=== PATIENT | female | born 2000 | race Two or more races ===

== ENCOUNTER 2024-05-20 09:55 | Emergency (ER) | payer MEDICAID, OTHER ==
[~2024-05-20] VITALS: Ht 162.6 cm; Wt 56.5 kg
--- NOTE | 2024-05-20 10:21 | ED.PDOC ---
History of Present Illness HPI Comments 23-year-old female came to the ER complaining of nausea vomiting cough congestion since yesterday. She is also complaining of abdominal pain which is 7/10 no radiation. She does use marijuana. Last being yesterday. Blood pressure on arrival 121/90 with a heart rate of 98 with a saturation of 95%. Denies any past surgical history. Denies any other symptoms. 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 Social History Smoker: Non-Smoker Alcohol: Denies ETOH Use Drugs: Marijuana Constitutional: denies: chills, diaphoresis, fatigue, fever, malaise, sweats, weakness, others EENTM: denies: blurred vision, double vision, ear bleeding, ear discharge, ear drainage, ear pain, ear ringing, eye pain, eye redness, hearing loss, mouth pain, mouth swelling, nasal discharge, nose bleeding, nose congestion, nose pain, photophobia, tearing, throat pain, throat swelling, voice changes, others Respiratory: denies: cough, hemoptysis, orthopnea, SOB at rest, shortness of breath, SOB with excertion, stridor, wheezing, others Cardiovascular: denies: chest pain, dizzy spells, diaphoresis, Dyspnea on exertion, edema, irregular heart beat, left arm pain, lightheadedness, palpitations, PND, syncope, others Gastrointestinal: reports: abdominal pain, nausea, vomiting; denies: abdomen distended, blood streaked bowels, constipated, diarrhea, dysphagia, difficulty swallowing, hematemesis, melena, poor appetite, poor fluid intake, rectal bleeding, rectal pain, others Genitourinary: denies: abnormal vagina bleeding, burning, dyspareunia, dysuria, flank pain, frequency, hematuria, incontinence, pain, , vagina discharge, urgency, others Neurological: denies: dizziness, fainting, headache, left sided numbness, left sided weakness, numbness, paresthesia, pre-existing deficit, right sided numbness, right sided weakness, seizure, speech problems, tingling, tremors, weakness, others Musculoskeletal: denies: back pain, gout, joint pain, joint swelling, muscle pain, muscle stiffness, neck pain, others Integumetry: denies: bruises, change in color, change in hair/nails, dryness, laceration, lesions, lumps, rash, wounds, others Allergic/Immunocompromised: denies: Difficulty Healing, Frequent Infections, Hives, Itching, others Hematologic/Lymphatic: denies: anemia, blood clots, easy bleeding, easy bruising, swollen glands, others Endocrine: denies: excessive hunger, excessive sweating, excessive thirst, excessive urination, flushing, intolerance to cold, intolerance to heat, unexpla ined weight gain, unexplained weight loss, others Psychiatric: denies: anxiety, bipolar disorder, depression, hopeless, panic disorder, schizophrenia, sleepless, suicidal, others Physical Exam General Appearance: Moderate Distress HEENT: Normal ENT Inspection, Pharynx Normal, TMs Normal Neck: Full Range of Motion, Non-Tender, Normal, Normal Inspection Respiratory: Chest Non-Tender, Lungs Clear, No Accessory Muscle Use, No Respiratory Distress, Normal Breath Sounds Cardiovascular: No Edema, No JVD, No Murmur, No Gallop, Normal Peripheral Pulses, Regular Rate/Rhythm Breast Exam: Deferred Gastrointestinal: No Organomegaly, Non Tender, No Pulsatile Mass, Normal Bowel Sounds, Soft Genitalia: Deferred Pelvic: Deferred Rectal: Deferred Extremities: No calf tenderness, Normal capillary refill, Normal inspection, Normal range of motion, Non-tender, No pedal edema Musculoskeletal : Apperance: Normal Neurologic: Alert, parer II-XII nml as Tested, No Motor Deficits, Normal Affect, Normal Mood, No Sensory Deficits Cerebellar Function: Normal Reflexes: Normal Skin: Dry, Normal Color, Warm Peripheral Pulses: 3+ Radial (R), 3+ Radial (L) Lymphatic: No Adenopathy Was a procedure done? Was a procedure done?: No Differential Dx Considerations may include: Anemia Electrolyte imbalance X-Ray, Labs, Meds, VS Vital Signs Date Time Temp Pulse Resp B/P (MAP) Pulse Ox O2 Delivery O2 Flow Rate FiO2 05/20/24 11:27 98.0 90 16 142/94 (110) 94 98.0 05/20/24 11:26 90 16 142/94 05/20/24 10:48 93 18 95 Room Air 05/20/24 10:48 97.5 93 18 139/97 (111) 95 97.5 05/20/24 10:45 92 16 139/97 05/20/24 10:11 98.6 98 20 121/90 (100) 95 Lab Test 05/20/24 10:33 05/20/24 10:10 Range/Units White Blood Count 14.4 H 4.4-10.8 10^3/uL Red Blood Count 4.18 4.0-5.20 10^6/uL Hemoglobin 13.9 12.2-16.2 g/dL Hematocrit 39.0 36.0-46.0 % Mean Corpuscular Volume 93.2 80.0-100.0 fL Mean Corpuscular Hemoglobin 33.3 H 28.0-32.0 pg Mean Corpuscular Hemoglobin Concent 35.7 32.0-36.0 g/dL Red Cell Distribution Width 15.1 H 11.8-14.3 % Platelet Count 621 H 140-450 10^3/uL Mean Platelet Volume 6.7 L 6.9-10.8 fL Neutrophils (%) (Auto) 80.2 H 37.0-80.0 % Lymphocytes (%) (Auto) 11.0 10.0-50.0 % Monocytes (%) (Auto) 8.1 0.0-12.0 % Eosinophils (%) (Auto) 0.2 0.0-7.0 % Basophils (%) (Auto) 0.5 0.0-2.0 % Neutrophils # (Auto) 11.5 H 1.6-8.6 10 ^3/uL Lymphocytes # (Auto) 1.6 0.4-5.4 10 ^3/uL Monocytes # (Auto) 1.2 0-1.3 10 ^3/uL Eosinophils # (Auto) 0 0-0.8 10 ^3/uL Basophils # (Auto) 0.1 0-0.2 10 ^3/uL Nucleated Red Blood Cells 0.0 % Sodium Level 139 136-145 mmol/L Potassium Level 3.7 3.5-5.1 mmol/L Chloride Level 101 98-107 mmol/L Carbon Dioxide Level 24 20-31 mmol/L Anion Gap 14 5-15 Blood Urea Nitrogen 14 9-23 mg/dL Creatinine 0.60 0.550-1.02 mg/dL Glomerular Filtration Rate Calc 128 >90 mL/min BUN/Creatinine Ratio 23.3 H 10.0-20.0 Serum Glucose 129 H 74-106 mg/dL Calcium Level 9.7 8.7-10.4 mg/dL Urine Color Dark-brown Yellow Urine Clarity Ex.turbid Clear Urine pH 6.0 5.0-9.0 Urine Specific [place] 1.033 1.001-1.035 Urine Protein 3+ H Negative Urine Ketones 2+ H Negative Urine Blood 3+ H Negative /uL Urine Nitrite Negative Negative Urine Bilirubin Negative Negative Urine Urobilinogen 3 H Negative mg/dL Urine Leukocyte Esterase 1+ Negative /uL Urine RBC 4666 0 - 4 /hpf Urine WBC Clumps Present None Seen /hpf Urine Microscopic WBC 142 H 0-5 /HPF Urine Squamous Epithelial Cells Mod <5 /hpf Urine Bacteria None seen None Seen /hpf Urine Mucus Many None Seen Urine Glucose Normal Normal mg/dL Urine Opiates Screen Neg NEGATIVE Urine Fentanyl Screen Neg NEGATIVE Urine Barbiturates Screen Neg NEGATIVE Urine Phencyclidine Screen Neg NEGATIVE Urine Amphetamines Screen Neg NEGATIVE Urine Benzodiazepines Screen Neg NEGATIVE Urine Cocaine Screen Neg NEGATIVE Urine Cannabinoids Screen Pos NEGATIVE Current Medications Medications (Trade) Dose Ordered Sig/Olivia Route Start Time Stop Time Status Last Admin Sodium Chloride 1,000 ml @ 1,000 mls/hr Q1H ONCE IV 05/20/24 10:30 05/20/24 11:29 DC 05/20/24 10:42 Morphine Sulfate 4 mg ONCE ONCE IV 05/20/24 10:30 05/20/24 10:31 DC 05/20/24 10:45 Ondansetron HCl (Zofran) 4 mg ONCE ONCE IV 05/20/24 10:30 05/20/24 10:31 DC 05/20/24 10:44 Patient alert. Complaining of nausea vomiting. Vitals stable. Answering all questions. Uses marijuana. Establish intravenous access. Was given fluids. Was given Zofran. Was given morphine. Explained to the patient. Continue monitoring. WBC elevated. Urinalysis shows UTI. Blood in the urine. Ketones. Severe dehydration. Possible sepsis. Was given Rocephin. Time of 1ST Reevaluation: 10:19 Reevaluation 1ST: Unchanged Patient Education/Counseling: Diagnosis, Treatment, Prognosis Family Education/Counseling: No Family Present Departure 1 Departure Time of Disposition: 10:20 Impression: Primary Impression: Sepsis, unspecified organism Qualified Codes: A41.9 - Sepsis, unspecified organism Additional Impression: Nausea & vomiting Qualified Codes: R11.2 - Nausea with vomiting, unspecified Disposition: ADMITTED INPATIENT Admit to: Med Surg Condition: Guarded Critical Care Note Critical Care Time?: No Stability Stability form required: No Heart Score Heart Score: Heart Score Response (Comments) Value History N/A 0 EKG N/A 0 Age N/A 0 Risk Factors N/A 0 Troponin N/A 0 Total 0 CAROLANN MONTANEZ MD May 20, 2024 10:21
[2024-05-20] MEDS: SODIUM CHLORIDE 0.9% 1,000 ML IV ONE (10:42)
[2024-05-20] MEDS: ONDANSETRON HCL 4 MG/2 ML VIAL IV ONE (10:44)
[2024-05-20] MEDS: MORPHINE SULFATE 4 MG/ML SYR/VIAL IV ONE (10:45)
[2024-05-20 10:46] LABS: Basophils # (auto) 0.1 10 ^3/uL (0-0.2); Eosinophils # (auto) 0 10 ^3/uL (0-0.8); Lymphocytes # (auto) 1.6 10 ^3/uL (0.4-5.4); Monocytes # (auto) 1.2 10 ^3/uL (0-1.3); Red Cell Distribution Width 15.1 % (11.8-14.3)
[2024-05-20 10:48] LABS: Basophils % (auto) 0.5 % (0.0-2.0); Eosinophils % (auto) 0.2 % (0.0-7.0); Hemoglobin 13.9 g/dL (12.2-16.2); Mean Corpuscular Hemoglobin 33.3 pg (28.0-32.0); Mean Corpuscular Hgb Conc. 35.7 g/dL (32.0-36.0); Mean Corpuscular Volume 93.2 fL (80.0-100.0); Monocytes % (auto) 8.1 % (0.0-12.0); Neutrophils # (auto) 11.5 10 ^3/uL (1.6-8.6); Neutrophils % (auto) 80.2 % (37.0-80.0); Platelet Count (auto) 621 10^3/uL (140-450); Red Blood Cells 4.18 10^6/uL (4.0-5.20); White Blood Cell 14.4 10^3/uL (4.4-10.8)
[2024-05-20 10:59] LABS: Urine Bacteria None Seen /hpf (None Seen)
[2024-05-20 11:14] LABS: Urine Blood 3+ /uL (Negative); Urine Clarity Ex.Turbid (Clear); Urine Color Dark-Brown (Yellow); Urine Mucus MANY (None Seen); Urine Protein, UAD 3+ (Negative); Urine Specific Gravity 1.033 (1.001-1.035); Urine Squamous Epithelial Cell MOD /hpf (<5); Urine Urobilinogen 3 mg/dL (Negative); Urine WBC 142 /HPF (0-5); Urine WBC Clumps PRESENT /hpf (None Seen)
[2024-05-20 11:21] LABS: Anion Gap 14 (5-15); Carbon Dioxide 24 mmol/L (20-31); Chloride 101 mmol/L (98-107); Potassium 3.7 mmol/L (3.5-5.1); Sodium 139 mmol/L (136-145)
[2024-05-20 11:22] LABS: Calcium 9.7 mg/dL (8.7-10.4)
[2024-05-20 11:27] VITALS: BP 142/94; PULSE 90; RESP 16; TEMP 98; O2SAT 94
[2024-05-20 11:27] LABS: BUN/Creatinine Ratio 23.3 (10.0-20.0); Blood Urea Nitrogen 14 mg/dL (9-23)
[2024-05-20 11:31] LABS: Glucose 129 mg/dL (74-106)
[2024-05-20 11:37] LABS: Amphetamine Screen, Urine Neg (NEGATIVE); Cannabinoid Screen, Urine Pos (NEGATIVE)
[2024-05-20 11:39] LABS: Barbiturate Scree,Urine Neg (NEGATIVE); Benzodiazephine Screen, Urine Neg (NEGATIVE); Cocaine Screen, Urine Neg (NEGATIVE); Opiate Scree,Urine Neg (NEGATIVE); Phencyclidine Screen, Urine Neg (NEGATIVE)
[2024-05-20] MEDS ORDERED: cefTRIAXone 1GM/50ML D5W 50 ML IV ONE (12:30)
[2024-05-20] MEDS ORDERED: SODIUM CHLORIDE 0.9% 1,000 ML IV ONE ×2 (12:30)
== END 2024-05-20 16:32 | disposition left against medical advice (07) ==
LOC: ER 09:55
DX: A41.9 Sepsis, unspecified organism (principal); R11.2 Nausea with vomiting, unspecified; F15.90 Other stimulant use, unspecified, uncomplicated; Z79.899 Other long term (current) drug therapy
CPT/HCPCS: 36415; 80048; 80307; 81001; 83605; 85025; 87040; 87086; 96361; 96374; 96375; 99284; J2270; J2405; J7030

== ENCOUNTER 2025-03-03 00:44 | Inpatient (IN) | payer MEDICAID ==
[~2025-03-03] VITALS: Ht 162.6 cm; Wt 73.4 kg
--- NOTE | 2025-03-03 01:24 | ED.PDOC ---
GI ASSESSMENT HPI Comments 24-year-old female who came to ER for abdominal pain. Patient has been complaining of sharp, intermittent left lower quadrant abdominal pain since yesterday, associated with multiple bouts of nausea and vomiting. Unable to keep anything in. Patient also states that she has been having vaginal bleeding since January. 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 Family History Family History: Reviewed,noncontributory to illness Social History Smoker: Non-Smoker Alcohol: Denies ETOH Use Drugs: Marijuana Lives In: Home Constitutional: reports: weakness; denies: chills, diaphoresis, fatigue, fever, malaise, sweats, others EENTM: denies: blurred vision, double vision, ear bleeding, ear discharge, ear drainage, ear pain, ear ringing, eye pain, eye redness, hearing loss, mouth pain, mouth swelling, nasal discharge, nose bleeding, nose congestion, nose pain, photophobia, tearing, throat pain, throat swelling, voice changes, others Respiratory: denies: cough, hemoptysis, orthopnea, SOB at rest, shortness of breath, SOB with excertion, stridor, wheezing, others Cardiovascular: denies: chest pain, dizzy spells, diaphoresis, Dyspnea on e xertion, edema, irregular heart beat, left arm pain, lightheadedness, palpitations, PND, syncope, others Gastrointestinal: reports: abdominal pain, nausea, vomiting; denies: abdomen distended, blood streaked bowels, constipated, diarrhea, dysphagia, difficulty swallowing, hematemesis, melena, poor appetite, poor fluid intake, rectal bleeding, rectal pain, others Genitourinary: denies: abnormal vagina bleeding, burning, dyspareunia, dysuria, flank pain, frequency, hematuria, incontinence, pain, , vagina discharge, urgency, others Neurological: denies: dizziness, fainting, headache, left sided numbness, left sided weakness, numbness, paresthesia, pre-existing deficit, right sided numbness, right sided weakness, seizure, speech problems, tingling, tremors, weakness, others Musculoskeletal: denies: back pain, gout, joint pain, joint swelling, muscle pain, muscle stiffness, neck pain, others Integumetry: denies: bruises, change in color, change in hair/nails, dryness, laceration, lesions, lumps, rash, wounds, others Allergic/Immunocompromised: denies: Difficulty Healing, Frequent Infections, Hives, Itching, others Hematologic/Lymphatic: denies: anemia, blood clots, easy bleeding, easy bruising, swollen glands, others Endocrine: denies: excessive hunger, excessive sweating, excessive thirst, excessive urination, flushing, intolerance to cold, intolerance to heat, unexplained weight gain, unexplained weight loss, others Psychiatric: denies: anxiety, bipolar disorder, depression, hopeless, panic disorder, schizophrenia, sleepless, suicidal, others Physical Exam General Appearance: No Apparent Distress, Normal HEENT: Normal ENT Inspection, Pharynx Normal, TMs Normal Neck: Full Range of Motion, Non-Tender, Normal, Normal Inspection Respiratory: Chest Non-Tender, Lungs Clear, No Accessory Muscle Use, No Respiratory Distress, Normal Breath Sounds Cardiovascular: No Edema, No JVD, No Murmur, No Gallop, Normal Peripheral Pulses, Regular Rate/Rhythm Breast Exam: Deferred Gastrointestinal: Epigastric, No Organomegaly, No Pulsatile Mass, Normal Bowel Sounds, Soft, Tenderness Genitalia: Deferred Pelvic: Deferred Rectal: Deferred Extremities: No calf tenderness, Normal capillary refill, Normal inspection, Normal range of motion, Non-tender, No pedal edema Musculoskeletal : Apperance: Normal Neurologic: Alert, identifier horse II-XII nml as Tested, No Motor Deficits, Normal Affect, Normal Mood, No Sensory Deficits Cerebellar Function: Normal Reflexes: Normal Skin: Dry, Normal Color, Warm Lymphatic: No Adenopathy Was a procedure done? Was a procedure done?: No GI differential Dx Differential Diagnosis: Gastritis/PUD, Gastroenteritis, Pancreatitis, UTI, Dehydration, Electrolyte Imbalance, Food Poisoning, , Anemia X-Ray, Labs, Meds, VS Vital Signs Date Time Temp Pulse Resp B/P (MAP) Pulse Ox O2 Delivery O2 Flow Rate FiO2 03/03/25 01:52 98.3 73 16 149/116 (127) 98 98.3 03/03/25 00:45 97.7 89 18 163/103 98 97.7 Lab Test 03/03/25 03:10 03/03/25 01:55 03/03/25 01:42 03/03/25 01:16 Range/Units Lactic Acid Level Pending Urine Color [place] H Yellow Urine Clarity Ex.turbid Clear Urine pH 6.5 5.0-9.0 Urine Specific [place] 1.044 H 1.001-1.035 Urine Protein 3+ H Negative Urine Ketones 2+ H Negative Urine Blood 2+ H Negative /uL Urine Nitrite Negative Negative Urine Bilirubin 1+ H Negative Urine Urobilinogen 4 H Negative mg/dL Urine Leukocyte Esterase 3+ Negative /uL Urine RBC 13 0 - 4 /hpf Urine Microscopic WBC 221 H 0-5 /HPF Urine Squamous Epithelial Cells Many <5 /hpf Urine Bacteria None seen None Seen /hpf Urine Mucus Many None Seen Urine Glucose Normal Normal mg/dL Urine Test Negative Negative POC Glucose 159 H 70-106 mg/dl White Blood Count 15.9 H 4.4-10.8 10^3/uL Red Blood Count 4.90 4.0-5.20 10^6/uL Hemoglobin 15.9 12.2-16.2 g/dL Hematocrit 46.5 H 36.0-46.0 % Mean Corpuscular Volume 94.9 80.0-100.0 fL Mean Corpuscular Hemoglobin 32.6 H 28.0-32.0 pg Mean Corpuscular Hemoglobin Concent 34.3 32.0-36.0 g/dL Red Cell Distribution Width 13.3 11.8-14.3 % Platelet Count 378 140-450 10^3/uL Mean Platelet Volume 6.6 L 6.9-10.8 fL Neutrophils (%) (Auto) 71.4 37.0-80.0 % Lymphocytes (%) (Auto) 18.5 10.0-50.0 % Monocytes (%) (Auto) 9.0 0.0-12.0 % Eosinophils (%) (Auto) 0.5 0.0-7.0 % Basophils (%) (Auto) 0.6 0.0-2.0 % Neutrophils # (Auto) 11.4 H 1.6-8.6 10 ^3/uL Lymphocytes # (Auto) 2.9 0.4-5.4 10 ^3/uL Monocytes # (Auto) 1.4 H 0-1.3 10 ^3/uL Eosinophils # (Auto) 0.1 0-0.8 10 ^3/uL Basophils # (Auto) 0.1 0-0.2 10 ^3/uL Nucleated Red Blood Cells 0.0 % Sodium Level 141 136-145 mmol/L Potassium Level 3.8 3.5-5.1 mmol/L Chloride Level 104 98-107 mmol/L Carbon Dioxide Level 23 20-31 mmol/L Anion Gap 14 5-15 Blood Urea Nitrogen 16 9-23 mg/dL Creatinine 0.74 0.550-1.02 mg/dL Glomerular Filtration Rate Calc 114 >90 mL/min BUN/Creatinine Ratio 21.6 H 10.0-20.0 Serum Glucose 132 H 74-106 mg/dL Calcium Level 10.8 H 8.7-10.4 mg/dL Total Bilirubin 0.6 0.2-1.0 mg/dL Aspartate Amino Transferase (AST) 26 13-40 U/L Alanine Aminotransferase (ALT) 32 7-40 U/L Alkaline Phosphatase 102 46-116 U/L Total Protein 8.7 H 5.7-8.2 g/dL Albumin 5.3 H 3.2-4.8 g/dL Lipase 30 12-53 U/L Current Medications Medications (Trade) Dose Ordered Sig/Olivia Route Start Time Stop Time Status Last Admin Sodium Chloride 1,000 ml @ 1,000 mls/hr Q1H ONCE IVB 03/03/25 01:00 03/03/25 01:59 DC 03/03/25 01:47 Ondansetron HCl (Zofran) 4 mg ONCE ONCE IV 03/03/25 02:15 03/03/25 02:16 DC 03/03/25 02:19 Ceftriaxone Sodium/Dextrose 50 ml @ 50 mls/hr ONCE ONCE IV 03/03/25 03:15 03/03/25 04:14 03/03/25 03:22 EXAM: CT CT AB PEL WITH IV CON ONLY History: ABDOMINAL PAIN COMPARISON: None TECHNIQUE: CT acquisition of the abdomen and pelvis with contrast. Multiplanar reformats were performed by the technologist on a separate workstation. Radiation Dose : 1. Abdomen/Pelvis: CTDIvol 9 mGy, DLP 565 mGy*cm. FINDINGS: Lower Chest: No acute findings. Liver: Diffuse hypoenhancement. Gallbladder and Biliary Tree: Unremarkable Pancreas: Normal. Spleen: Normal. Adrenal Glands: Unremarkable Kidneys: Normal. Bladder: Unremarkable for degree of distention. Pelvic Organs: Unremarkable Bowel: The distal esophagus, stomach, duodenum and small bowel are unremarkable. The appendix is normal. Circumferential wall prominence of the large bowel from the cecum to the distal transverse colon, which is decompressed. The more distal large bowel is unremarkable. Vasculature: Unremarkable. Lymphadenopathy: No evident adenopathy. Peritoneum: Physiologic volume of pelvic ascites. No free air or fluid collection. Abdominal Wall: No significant hernia. Musculoskeletal: No acute abnormality. IMPRESSION: Evidence of a nonspecific proximal mid colitis, likely infectious or infla mmatory. Radiation optimization: All CT scans at this facility use at least one of these dose optimization techniques: automated exposure control mA and/or kV adjustment per patient size (includes targeted exams where dose is matched to clinical indication) or iterative reconstruction. Time of 1ST Reevaluation: 01:21 Reevaluation 1ST: Unchanged Patient Education/Counseling: Diagnosis, Treatment Family Education/Counseling: No Family Present SEPSIS Sepsis Screen Date sepsis recognized/suspect: Mar 03, 2025 Time Sepsis recognized/suspect: 005 Recent Procedure: No On Antibiotic Therapy: No Respiratory Rate >20: No Heart Rate >90: No Temp<36 C (96.8 F) or >38.3 C: No SBP <90 or MAP <65 mmHG: No New Acute Mental Status Change: No Is the patient on CPAP, BIPAP,: No Physician Orders Ct Ab Pel With Iv Con Only (03/03/25 02:02) Lactic Acid W/ Reflex Order (03/03/25 03:06) Blood Culture (03/03/25 03:06) Ceftriaxone 2gm/50ml (Rocephin 2gm/50ml) (03/03/25 03:15) Sodium Chloride 0.9% (03/03/25 03:30) Vital Signs Date Time Temp Pulse Resp B/P (MAP) Pulse Ox O2 Delivery O2 Flow Rate FiO2 03/03/25 01:52 98.3 73 16 149/116 (127) 98 98.3 03/03/25 00:45 97.7 89 18 163/103 98 97.7 Laboratory Tests Test 03/03/25 01:16 03/03/25 03:10 White Blood Count 15.9 10^3/uL (4.4-10.8) H Lactic Acid Level Pending Medications Medications Dose Ordered Sig/Olivia Route Start Time Stop Time Status Last Admin Dose Admin Ceftriaxone Sodium/Dextrose 50 ml @ 50 mls/hr ONCE ONCE IV 03/03/25 03:15 03/03/25 04:14 03/03/25 03:22 Ondansetron HCl 4 mg ONCE ONCE IV 03/03/25 02:15 03/03/25 02:16 DC 03/03/25 02:19 Sodium Chloride 1,000 ml @ 1,000 mls/hr Q1H ONCE IVB 03/03/25 01:00 03/03/25 01:59 DC 03/03/25 01:47 Departure 1 Departure Time of Disposition: 03:31 Impression: Primary Impression: Intractable vomiting Additional Impressions: Dehydration Pyelonephritis Nonspecific colitis Disposition: ADMITTED INPATIENT Admit to: Med Surg Condition: Guarded Comments 24-year-old female with left lower quadrant pain and intractable vomiting. Her white count is elevated 15.5. She has a strong UTI. CT of the abdomen and pelvis shows nonspecific colitis. She is still nauseated and having pain on re- evaluation. She was given IV fluids and IV Rocephin antibiotics. Patient will need to be admitted for supportive care and further workup. Critical Care Note Critical Care Time?: No Stability Stability form required: No Heart Score Heart Score: Heart Score Response (Comments) Value History N/A 0 EKG N/A 0 Age N/A 0 Risk Factors N/A 0 Troponin N/A 0 Total 0 I personally scribed for FEDE NAVA MD ([email or web address]) on 03/03/25 at 01:24. Electronically submitted by Stevenson Calderon ([email or web address]). I personally scribed for FEDE NAVA MD ([email or web address]) on 03/03/25 at 03:30. Electronically submitted by Stevenson Calderon ([email or web address]). FEDE NAVA MD Mar 03, 2025 01:24
[2025-03-03 01:37] LABS: Hematocrit 46.5 % (36.0-46.0); Hemoglobin 15.9 g/dL (12.2-16.2); Mean Corpuscular Hemoglobin 32.6 pg (28.0-32.0); Mean Corpuscular Volume 94.9 fL (80.0-100.0); Nucleated Red Blood Cells % 0.0 %
[2025-03-03] MEDS: SODIUM CHLORIDE 0.9% 1,000 ML IVB ONE (01:47)
[2025-03-03 01:56] LABS: Alanine Aminotransferase 32 U/L (7-40); Alkaline Phosphatase 102 U/L (46-116); Anion Gap 14 (5-15); BUN/Creatinine Ratio 21.6 (10.0-20.0); Bilirubin, Total 0.6 mg/dL (0.2-1.0); Blood Urea Nitrogen 16 mg/dL (9-23); Carbon Dioxide 23 mmol/L (20-31); Chloride 104 mmol/L (98-107); Lipase 30 U/L (12-53); Potassium 3.8 mmol/L (3.5-5.1); Sodium 141 mmol/L (136-145)
[2025-03-03 01:57] LABS: Albumin 5.3 g/dL (3.2-4.8); Calcium 10.8 mg/dL (8.7-10.4); Glucose 132 mg/dL (74-106); Total Protein 8.7 g/dL (5.7-8.2)
[2025-03-03] MEDS: ONDANSETRON HCL 4 MG/2 ML VIAL IV ONE (02:19)
[2025-03-03 02:27] LABS: Urine Protein, UAD 3+ (Negative)
[2025-03-03] MEDS: IOHEXOL 300 MG/ML 100ML BOTTLE IJ ONE (03:02)
--- NOTE | 2025-03-03 03:25 | DVH ---
EXAM: CT CT AB PEL WITH IV CON ONLY History: ABDOMINAL PAIN COMPARISON: None TECHNIQUE: CT acquisition of the abdomen and pelvis with contrast. Multiplanar reformats were performed by the technologist on a separate workstation. Radiation Dose : 1. Abdomen/Pelvis: CTDIvol 9 mGy, DLP 565 mGy*cm. FINDINGS: Lower Chest: No acute findings. Liver: Diffuse hypoenhancement. Gallbladder and Biliary Tree: Unremarkable Pancreas: Normal. Spleen: Normal. Adrenal Glands: Unremarkable Kidneys: Normal. Bladder: Unremarkable for degree of distention. Pelvic Organs: Unremarkable Bowel: The distal esophagus, stomach, duodenum and small bowel are unremarkable. The appendix is normal. Circumferential wall prominence of the large bowel from the cecum to the distal transverse colon, which is decompressed. The more distal large bowel is unremarkable. Vasculature: Unremarkable. Lymphadenopathy: No evident adenopathy. Peritoneum: Physiologic volume of pelvic ascites. No free air or fluid collection. Abdominal Wall: No significant hernia. Musculoskeletal: No acute abnormality. IMPRESSION: Evidence of a nonspecific proximal mid colitis, likely infectious or inflammatory. Radiation optimization: All CT scans at this facility use at least one of these dose optimization techniques: automated exposure control mA and/or kV adjustment per patient size (includes targeted exams where dose is matched to clinical indication) or iterative reconstruction.
[2025-03-03] MEDS: SODIUM CHLORIDE 0.9% 1,000 ML IV ONE (03:33)
--- NOTE | 2025-03-03 03:45 | DVHHPRES ---
History of Present Illness Resident Creating Document: WILMER HAYES RESIDENT History of Present Illness This is a 24-year-old female with past medical history of hypothyroidism, recurrent UTI presented to the ED with a chief complaint of left lower abdominal pain, intractable nausea and vomiting since yesterday afternoon prior to this admission. The patient stated that since yesterday she started having left lower pelvic pain which was sharp pain, 8/10, radiates to the left flank region and associated with intractable nausea, vomiting, cold sweats and 1 episodes of diarrhea . She had history of recurrent UTI but never been hospitalized before for UTI. She denies fever, chills, shortness of breath, dysuria, frequency, hematuria, altered bowel habit, recent traveling, eating outside food or any recent sick contact. Past Medical History Hypothyroidism, recurrent UTI Past Surgical History Denies any surgical history Family History Noncontributory Past Social History Lives with family Smoke weeds, social drinker and never tried any other drugs Review of Systems Constitutional: Yes: Sweats; No: Fever, Chills, Weakness, Malaise, Other Eyes: No: Pain, Vision change, Conjunctivae inflammation, Eyelid inflammation, Other, Redness ENT: No: Ear pain, Ear discharge, Nose pain, Nose discharge, Nose congestion, Mouth pain, Mouth swelling, Throat pain, Throat swelling, Other Respiratory: No: Cough, Dry, Shortness of breath, SOB with excertion, Wheezing, Hemoptysis, Pleuritic Pain, Sputum, Wheezing, Other Cardiovascular: No: Chest Pain, Palpitations, Orthopnea, Paroxysmal Noc. Dyspnea, Edema, Lt Headedness, Other Gastrointestinal: Nausea, Vomiting, Abdominal Pain, Diarrhea Genitourinary: No Dysuria, No Frequency, No Incontinence, No Hematuria, No Retention, No Other Skin: No: Rash, Lesions, Jaundice, Bruising, Other Neurological: No: Weakness, Numbness, Incoordination, Change in speech, Confusion, Seizures, Other Allergies: Coded Allergies: NO KNOWN ALLERGIES (Unverified , 05/20/24) Exam Vital Signs Vital Signs Date Time Temp Pulse Resp B/P (MAP) Pulse Ox O2 Delivery O2 Flow Rate FiO2 03/03/25 03:38 64 16 147/105 (119) 99 03/03/25 01:52 98.3 98.3 03/03/25 01:47 Room Air* 0 21 Exam Physical examination: General Appearance: Alert, Oriented X3, Cooperative, No acute distress HEENT: Atraumatic, PERRLA, EOMI, Mucous membrane moist/pink Respiratory: Clear to auscultation, Normal air movement Cardiovascular: Regular rate, Normal S1, Normal S2, No murmurs, no chest wall tenderness Abdominal: Normal bowel sounds, Soft, mild diffuse tenderness in the abdomen, No hepatospenomegaly, No masses Extremities: No clubbing, No cyanosis, No edema, Normal pulses, No tenderness/swelling Skin: No rashes, No breakdown, No significant lesion Neuro: Normal gait, Normal speech, Strength at 5/5 X4 ext, Normal tone, Sensation intact, Cranial nerves 3-12 NL, Reflexes 2+ Psych/Mental Status: Mental status NL, Mood NL Labs/Xrays Labs Test 03/03/25 03:10 03/03/25 01:55 03/03/25 01:42 03/03/25 01:16 Range/Units Urine Color [place] H Yellow Urine Clarity Ex.turbid Clear Urine pH 6.5 5.0-9.0 Urine Specific [place] 1.044 H 1.001-1.035 Urine Protein 3+ H Negative Urine Ketones 2+ H Negative Urine Blood 2+ H Negative /uL Urine Nitrite Negative Negative Urine Bilirubin 1+ H Negative Urine Urobilinogen 4 H Negative mg/dL Urine Leukocyte Esterase 3+ Negative /uL Urine RBC 13 0 - 4 /hpf Urine Microscopic WBC 221 H 0-5 /HPF Urine Squamous Epithelial Cells Many <5 /hpf Urine Bacteria None seen None Seen /hpf Urine Mucus Many None Seen Urine Glucose Normal Normal mg/dL Urine Test Negative Negative POC Glucose 159 H 70-106 mg/dl White Blood Count 15.9 H 4.4-10.8 10^3/uL Red Blood Count 4.90 4.0-5.20 10^6/uL Hemoglobin 15.9 12.2-16.2 g/dL Hematocrit 46.5 H 36.0-46.0 % Mean Corpuscular Volume 94.9 80.0-100.0 fL Mean Corpuscular Hemoglobin 32.6 H 28.0-32.0 pg Mean Corpuscular Hemoglobin Concent 34.3 32.0-36.0 g/dL Red Cell Distribution Width 13.3 11.8-14.3 % Platelet Count 378 140-450 10^3/uL Mean Platelet Volume 6.6 L 6.9-10.8 fL Neutrophils (%) (Auto) 71.4 37.0-80.0 % Lymphocytes (%) (Auto) 18.5 10.0-50.0 % Monocytes (%) (Auto) 9.0 0.0-12.0 % Eosinophils (%) (Auto) 0.5 0.0-7.0 % Basophils (%) (Auto) 0.6 0.0-2.0 % Neutrophils # (Auto) 11.4 H 1.6-8.6 10 ^3/uL Lymphocytes # (Auto) 2.9 0.4-5.4 10 ^3/uL Monocytes # (Auto) 1.4 H 0-1.3 10 ^3/uL Eosinophils # (Auto) 0.1 0-0.8 10 ^3/uL Basophils # (Auto) 0.1 0-0.2 10 ^3/uL Nucleated Red Blood Cells 0.0 % Sodium Level 141 136-145 mmol/L Potassium Level 3.8 3.5-5.1 mmol/L Chloride Level 104 98-107 mmol/L Carbon Dioxide Level 23 20-31 mmol/L Anion Gap 14 5-15 Blood Urea Nitrogen 16 9-23 mg/dL Creatinine 0.74 0.550-1.02 mg/dL Glomerular Filtration Rate Calc 114 >90 mL/min BUN/Creatinine Ratio 21.6 H 10.0-20.0 Serum Glucose 132 H 74-106 mg/dL Calcium Level 10.8 H 8.7-10.4 mg/dL Total Bilirubin 0.6 0.2-1.0 mg/dL Aspartate Amino Transferase (AST) 26 13-40 U/L Alanine Aminotransferase (ALT) 32 7-40 U/L Alkaline Phosphatase 102 46-116 U/L Total Protein 8.7 H 5.7-8.2 g/dL Albumin 5.3 H 3.2-4.8 g/dL Lipase 30 12-53 U/L SEPSIS Sepsis Screen Date sepsis recognized/suspect: Mar 03, 2025 Time Sepsis recognized/suspect: 305 Recent Procedure: No On Antibiotic Therapy: No Respiratory Rate >20: No Heart Rate >90: No Temp<36 C (96.8 F) or >38.3 C: No SBP <90 or MAP <65 mmHG: No New Acute Mental Status Change: No Is the patient on CPAP, BIPAP,: No Physician Orders Ct Ab Pel With Iv Con Only (03/03/25 02:02) Lactic Acid W/ Reflex Order (03/03/25 03:06) Blood Culture (03/03/25 03:06) Ceftriaxone 2gm/50ml (Rocephin 2gm/50ml) (03/03/25 03:15) Sodium Chloride 0.9% (03/03/25 03:30) Admit (03/03/25 03:43) Code Status (03/03/25 03:43) Clear Liq Diet (03/03/25 Breakfast) Vital Signs Date Time Temp Pulse Resp B/P (MAP) Pulse Ox O2 Delivery O2 Flow Rate FiO2 03/03/25 03:38 64 16 147/105 (119) 99 03/03/25 01:52 98.3 73 16 149/116 (127) 98 98.3 03/03/25 01:47 Room Air* 0 21 03/03/25 00:45 97.7 89 18 163/103 98 97.7 Laboratory Tests Test 03/03/25 01:16 03/03/25 03:10 White Blood Count 15.9 10^3/uL (4.4-10.8) H Lactic Acid Level Pending Medications Medications Dose Ordered Sig/Olivia Route Start Time Stop Time Status Last Admin Dose Admin Ceftriaxone Sodium/Dextrose 50 ml @ 50 mls/hr ONCE ONCE IV 03/03/25 03:15 03/03/25 04:14 03/03/25 03:22 50 MLS/HR Ondansetron HCl 4 mg ONCE ONCE IV 03/03/25 02:15 03/03/25 02:16 DC 03/03/25 02:19 4 MG Sodium Chloride 1,000 ml @ 1,000 mls/hr Q1H ONCE IV 03/03/25 03:30 03/03/25 04:29 03/03/25 03:33 1,000 MLS/HR Sodium Chloride 1,000 ml @ 1,000 mls/hr Q1H ONCE IVB 03/03/25 01:00 03/03/25 01:59 DC 03/03/25 01:47 1,000 MLS/HR Assessment/Plan Assessment/Plan Assessment and plan: # Acute abdominal pain with intractable nausea and vomiting # Acute colitis # Acute complicated UTI - CBC demonstrated elevated WBC count with left shift - CT abdomen pelvis without contrast demonstrated acute mild colitis with circumferential wall prominence of the large bowel from the cecum to the distal transverse colon - U/A was consistent with UTI - Pending blood culture, urine bacterial culture, urine NAAT for chlamydia, g onorrhea and stool WBC - clear liquid diet - IV NS at 100 mL/hours - IV ceftriaxone 1 g daily and IV metronidazole 500 mg Q 8 hours - IV ondansetron 4 mg Q 8 hours # Severe hypothyroidism likely secondary to noncompliant with medication - TSH is 19.37 - Levothyroxine 100 mcg at q.6 a.m. # Vitamin-D deficiency - Ergocalciferol 67082 units Q 7D. # DVT prophylaxis - Not recommended Goal of care and code status discussed with the patient for more than 20 minutes full code Plan discussed with Dr. Soto Plan discussed with: Patient, Other (RN) My Orders Orders - WILMER HAYES Procedure Category Date Status Time Admit ADMIT 03/03/25 Verified 03:43 Code Status CODE 03/03/25 Verified 03:43 Clear Liq Diet DIET 03/03/25 Verified Breakfast Visit Coding STANDARD RES Billing Provider: NEVAEH SOTO MD Date of Service if different f: Mar 03, 2025 Common Visit Codes: [id number] INP/OBS CARE (HIGH) Secondary Visit Codes: [id number] CARE PLAN 30 MINUTES WILMER HAYES Mar 03, 2025 03:45
[2025-03-03] MEDS: ONDANSETRON HCL 4 MG/2 ML VIAL IV PRN ×2 (04:27→12:57)
[2025-03-03] MEDS: SODIUM CHLORIDE 0.9% 1,000 ML IV SCH (04:50)
[2025-03-03 05:15] LABS: COVID19 ANTIGEN SOFIA FIA NEGATIVE (NEGATIVE)
[2025-03-03] MEDS: ERGOCALCIFEROL 50,000 UNIT(1.25MG) CAP PO SCH (05:51)
[2025-03-03] MEDS: LEVOTHYROXINE SODIUM 100 MCG TAB PO SCH (06:23)
--- NOTE | 2025-03-03 07:40 | DVH ---
US KIDNEY HISTORY:: recurrent UTI COMPARISON: None TECHNIQUE:: Sonographic grayscale and color doppler evaluation of the kidneys and urinary bladder was performed. FINDINGS: RIGHT: 11.4 cm. Normal cortical echogenicity and normal contour. No hydronephrosis. No focal renal mass lesion or shadowing stone LEFT: 9.8 cm. Normal cortical echogenicity and normal contour. No hydronephrosis. Echogenic structure possibly nonobstructive stone measuring 5 mm in the left mid kidney. BLADDER: The urinary bladder is well distended and appears unremarkable. Right and left ureteral jets are visualized. OTHER: None IMPRESSION: 1. Nonobstructive stone of the left kidney measuring 5 mm. 2. Bilateral ureteral jets are identified.
[2025-03-03 07:59] VITALS: PULSE 74; RESP 18; O2SAT 96
[2025-03-03 08:20] LABS: Hematocrit 40.6 % (36.0-46.0); Hemoglobin 13.3 g/dL (12.2-16.2); Mean Corpuscular Hemoglobin 31.7 pg (28.0-32.0); Mean Corpuscular Volume 96.8 fL (80.0-100.0); Nucleated Red Blood Cells % 0.0 %
[2025-03-03 10:03] VITALS: BP 136/72; PULSE 69; RESP 17; TEMP 98.3; O2SAT 98
[2025-03-03 10:37] LABS: Amphetamine Screen, Urine Neg (NEGATIVE); Barbiturate Scree,Urine Neg (NEGATIVE); Benzodiazephine Screen, Urine Neg (NEGATIVE); Cannabinoid Screen, Urine Pos (NEGATIVE); Cocaine Screen, Urine Neg (NEGATIVE); Opiate Scree,Urine Neg (NEGATIVE); Phencyclidine Screen, Urine Neg (NEGATIVE)
--- NOTE | 2025-03-03 11:10 | DVHPNRES ---
Progress Note Date Seen: Mar 03, 2025 Resident Creating Document: SABI ROMERO RESIDENT Medical Necessity Reason Pt with a Central, PICC or Fol: No Subjective Review of Systems Hilario Valdez is a 24-year-old female with past medical history of hypothyroidism who presented to the hospital with complaints of abdominal pain and nausea since 3 days. She rates the abdominal pain 7 on 10 in intensity, sharp, nonradiating. She reports that she has been having fluids at home and not able to tolerate solid at. She has no history of recent food from outside. Patient complains of a 1 month long periods which just ended. She says that she had a depot shot 4 months back and did not have menstruation for the 3 months after that. The next menstruation lasted for 1 month. patient is not working or Studying. PMHx:hypothyroidism PSHx: Denies any surgeries Family history: nonrelevant Social history: Lives with family at home. Smokes marijuana daily, occasional alcohol use Home medication: none Allergic history: no known allergies General: patient denies fever, fatigue, weaknes, sweating, any recent changes in appetite and weight HEENT: No headaches, visiual changes, hearing loss, tinnitus, nasal congestion and discharge, and sore throat. Cardiovascular: Denies chest pain, palpitations, dyspnea on exertion, orthopnea, or claudication. Respiratory: No cough, and wheezing. Gastrointestinal: complains of abdominal pain and nausea Genitourinary: No dysuria, hematuria, discharge, frequency, urgency, nocturia, incontinence, and urinary retention. Endocrine: No heat or cold intolerance, polydipsia, polyuria, and polyphagia. Neurological: No dizziness, extremity weakness and numbness, tremors, gait disturbance, seizures, and memory impairment. Psychiatric: Denies depression, anxiety,or insomnia. Musculoskeletal: Denies neck pain, stiffness and swelling, back pain, muscle weakness, joint pain, stiffness, swelling, or limited range of motion. Skin: No rashes, itching, skin lesion, changes in hair, nail, skin texture and breast. Hematologic/Lymphatic: Denies easy bruising, bleeding tendencies, or lymph node enlargement. Objective vital signs Vital Sign Date Time Temp Pulse Resp B/P (MAP) Pulse Ox O2 Delivery O2 Flow Rate FiO2 03/03/25 10:03 98.3 69 17 136/72 (93) 98 98.3 03/03/25 07:59 Room Air* 0 21 Total Intake and Output 03/02/25 03/02/25 03/03/25 15:00 23:00 07:00 Intake Total 2350 ml Balance 2350 ml medications Current Medications Medications Dose Ordered Sig/Olivia Route Start Time Stop Time Status Last Admin Dose Admin Sodium Chloride 1,000 ml @ 100 mls/hr Q10H IV 03/03/25 04:00 03/03/25 04:50 100 MLS/HR Ceftriaxone Sodium 50 ml @ 100 mls/hr DAILY IV 03/04/25 10:00 Metronidazole 100 ml @ 100 mls/hr Q8HR IV 03/03/25 14:00 Ondansetron HCl 4 mg Q8HPRN PRN IV 03/03/25 04:00 03/03/25 04:27 4 MG Levothyroxine Sodium 100 mcg QAM@0600 PO 03/03/25 06:00 03/03/25 06:23 100 MCG Ergocalciferol 50,000 unit Q7D PO 03/03/25 05:00 03/03/25 05:51 50,000 UNIT Examination General Appearance: Alert, Oriented X3, Cooperative, No acute distress HEENT: Atraumatic, PERRLA, EOMI, Mucous membrane moist/pink Respiratory: Clear to auscultation, Normal air movement Cardiovascular: Regular rate, Normal S1, Normal S2, No murmurs, no chest wall tenderness Abdominal: diffuse abdominal tenderness present, more in the left lower quadrant Extremities: No clubbing, No cyanosis, No edema, Normal pulses, No tenderness/swelling Skin: No rashes, No breakdown, No significant lesion Neuro: Normal gait, Normal speech, Strength at 5/5 X4 ext, Normal tone, Sensation intact, Cranial nerves 3-12 NL, Reflexes 2+ Psych/Mental Status: Mental status NL, Mood NL laboratory and microbiology Laboratory Tests 03/03/25 08:07 03/03/25 01:16 Test 03/03/25 01:16 Range/Units Serum Glucose 132 H 74-106 mg/dL Problem List/Assessment/Plan Problem List/Assessment/Plan Assessment and plan Acute complicated UTI Proximal mid Colitis likely infectious Leukocytosis due to above - CBC demonstrated elevated WBC count with left shift - CT abdomen pelvis without contrast demonstrated acute mild colitis with circumferential wall prominence of the large bowel from the cecum to the distal transverse colon - U/A was consistent with UTI - Pending blood culture, urine bacterial culture, urine NAAT for chlamydia, gonorrhea and stool WBC - clear liquid diet - IV NS at 100 mL/hours - IV ceftriaxone 1 g daily and IV metronidazole 500 mg Q 8 hours - IV ondansetron 4 mg Q 8 hours Severe hypothyroidism likely secondary to noncompliant with medication - TSH is 19.37 - Levothyroxine 100 mcg at q.6 a.m. Vitamin-D deficiency - Ergocalciferol 53956 units Q 7D. Hypertension Likely from substance abuse/ infection Hyperglycemia Follow up blood glucose levels DVT prophylaxis Not recommended Goal of care full code Plan discussed with Dr. Blanco Plan discussed with: Patient Date of Service: Mar 03, 2025 Billing Provider: NUVIA BLANCO DO Common Visit Codes: [id number] INP/OBS CARE(HIGH) SABI ROMERO RESIDENT Mar 03, 2025 11:10 NUVIA BLANCO DO Mar 05, 2025 20:30
[2025-03-03] MEDS: ONDANSETRON HCL 4 MG/2 ML VIAL ONE (12:57)
[2025-03-03 13:00] VITALS: BP 157/93; PULSE 100; RESP 14; TEMP 98.2; O2SAT 100
[2025-03-03 20:00] VITALS: PULSE 63; RESP 17
[2025-03-03 21:00] VITALS: BP 136/85; PULSE 63; RESP 19; TEMP 97.8; O2SAT 100
[2025-03-04] VITALS (8 sets, daily range): BP systolic 125–163; BP diastolic 81–105; PULSE 50–60; RESP 16–20; TEMP 97.9–98.9; O2SAT 98–100
[2025-03-04] MEDS: ACETAMINOPHEN 500 MG TAB or CAP PO PRN (00:42)
[2025-03-04] MEDS: PANTOPRAZOLE 40 MG/10 ML VIAL INJ IV ONE (01:54)
[2025-03-04] MEDS ORDERED: VANCOMYCIN PER PHARMACY 0 MG IV SCH (05:15)
[2025-03-04] MEDS: VANCOMYCIN 1GM/250ML IV ONE (06:52)
[2025-03-04 06:55] LABS: Hematocrit 38.2 % (36.0-46.0); Hemoglobin 13.0 g/dL (12.2-16.2); Mean Corpuscular Hemoglobin 32.7 pg (28.0-32.0); Mean Corpuscular Volume 95.8 fL (80.0-100.0); Nucleated Red Blood Cells % 0.0 %
[2025-03-04 07:13] LABS: Alanine Aminotransferase 35 U/L (7-40); Albumin 4.2 g/dL (3.2-4.8); Alkaline Phosphatase 74 U/L (46-116); Anion Gap 11 (5-15); BUN/Creatinine Ratio 10.3 (10.0-20.0); Bilirubin, Total 0.5 mg/dL (0.2-1.0); Calcium 9.0 mg/dL (8.7-10.4); Carbon Dioxide 25 mmol/L (20-31); Chloride 104 mmol/L (98-107); Glucose 101 mg/dL (74-106); Sodium 140 mmol/L (136-145); Total Protein 6.8 g/dL (5.7-8.2)
[2025-03-04 07:15] LABS: Blood Urea Nitrogen 6 mg/dL (9-23); Potassium 3.4 mmol/L (3.5-5.1)
[2025-03-04] MEDS: POTASSIUM EFFERVESENT TAB 25 MEQ PO ONE (10:18)
--- NOTE | 2025-03-04 16:04 | DVHPNRES ---
Progress Note Date Seen: Mar 04, 2025 Resident Creating Document: SABI ROMERO RESIDENT Medical Necessity Reason Pt with a Central, PICC or Fol: No Subjective Review of Systems Patient seen at bedside. Complains of multiple episodes of vomiting overnight. Blood culture came back positive for Gram-positive bug. Repeat cultures ordered. Hilario Valdez is a 24-year-old female with past medical history of hypothyroidism who presented to the hospital with complaints of abdominal pain and nausea since 3 days. She rates the abdominal pain 7 on 10 in intensity, sharp, nonradiating. She reports that she has been having fluids at home and not able to tolerate solid at. She has no history of recent food from outside. Patient complains of a 1 month long periods which just ended. She says that she had a depot shot 4 months back and did not have menstruation for the 3 months after that. The next menstruation lasted for 1 month. patient is not working or Studying. PMHx:hypothyroidism PSHx: Denies any surgeries Family history: nonrelevant Social history: Lives with family at home. Smokes marijuana daily, occasional alcohol use Home medication: none Allergic history: no known allergies General: patient denies fever, fatigue, weaknes, sweating, any recent changes in appetite and weight HEENT: No headaches, visiual changes, hearing loss, tinnitus, nasal congestion and discharge, and sore throat. Cardiovascular: Denies chest pain, palpitations, dyspnea on exertion, orthopnea, or claudication. Respiratory: No cough, and wheezing. Gastrointestinal: complains of abdominal pain and nausea Genitourinary: No dysuria, hematuria, discharge, frequency, urgency, nocturia, incontinence, and urinary retention. Endocrine: No heat or cold intolerance, polydipsia, polyuria, and polyphagia. Neurological: No dizziness, extremity weakness and numbness, tremors, gait disturbance, seizures, and memory impairment. Psychiatric: Denies depression, anxiety,or insomnia. Musculoskeletal: Denies neck pain, stiffness and swelling, back pain, muscle weakness, joint pain, stiffness, swelling, or limited range of motion. Skin: No rashes, itching, skin lesion, changes in hair, nail, skin texture and breast. Hematologic/Lymphatic: Denies easy bruising, bleeding tendencies, or lymph node enlargement. Objective vital signs Vital Sign Date Time Temp Pulse Resp B/P (MAP) Pulse Ox O2 Delivery O2 Flow Rate FiO2 03/04/25 13:02 98.0 59 16 150/89 (109) 100 98.0 03/04/25 08:00 Room Air* 0 21 Total Intake and Output 03/03/25 03/03/25 03/04/25 15:00 23:00 07:00 Intake Total 100 ml 1400 ml Balance 100 ml 1400 ml medications Current Medications Medications Dose Ordered Sig/Olivia Route Start Time Stop Time Status Last Admin Dose Admin Sodium Chloride 1,000 ml @ 100 mls/hr Q10H IV 03/03/25 04:00 03/04/25 05:23 100 MLS/HR Ceftriaxone Sodium 50 ml @ 100 mls/hr DAILY IV 03/04/25 10:00 03/04/25 10:18 100 MLS/HR Metronidazole 100 ml @ 100 mls/hr Q8HR IV 03/03/25 14:00 03/04/25 14:51 100 MLS/HR Levothyroxine Sodium 100 mcg QAM@0600 PO 03/03/25 06:00 03/04/25 05:17 100 MCG Ergocalciferol 50,000 unit Q7D PO 03/03/25 05:00 03/03/25 05:51 50,000 UNIT Ondansetron HCl 4 mg Q4HPRN PRN IV 03/03/25 12:00 03/04/25 14:57 4 MG Acetaminophen 500 mg Q6HP PRN PO 03/04/25 00:45 03/04/25 00:42 500 MG Vancomycin HCl 0 ml @ 0 mls/hr PER PHARMACY IV 03/04/25 05:15 Vancomycin HCl 250 ml @ 200 mls/hr Q12H IV 03/04/25 18:00 Examination General Appearance: Alert, Oriented X3, Cooperative, No acute distress HEENT: Atraumatic, PERRLA, EOMI, Mucous membrane moist/pink Respiratory: Clear to auscultation, Normal air movement Cardiovascular: Regular rate, Normal S1, Normal S2, No murmurs, no chest wall tenderness Abdominal: diffuse abdominal tenderness present, more in the left lower quadrant Extremities: No clubbing, No cyanosis, No edema, Normal pulses, No tenderness/swelling Skin: No rashes, No breakdown, No significant lesion Neuro: Normal gait, Normal speech, Strength at 5/5 X4 ext, Normal tone, Sensation intact, Cranial nerves 3-12 NL, Reflexes 2+ Psych/Mental Status: Mental status NL, Mood NL laboratory and microbiology Laboratory Tests 03/04/25 05:58 Test 03/04/25 05:58 Range/Units Serum Glucose 101 74-106 mg/dL Microbiology Date/Time Source Procedure Growth Status 03/03/25 06:20 Nose MRSA Screen - Final Complete 03/03/25 03:23 Blood Blood Culture - Preliminary NO GROWTH AFTER 24 HOURS OF INCUBATION. Resulted 03/03/25 01:15 Voided Urine Urine Culture - Preliminary Resulted Labs and/or images reviewed: Labs reviewed by me, Image(s) reviewed by me Problem List/Assessment/Plan Problem List/Assessment/Plan Assessment and plan Acute complicated UTI Proximal mid Colitis likely infectious Leukocytosis due to above - CBC demonstrated elevated WBC count with left shift - CT abdomen pelvis without contrast demonstrated acute mild colitis with circumferential wall prominence of the large bowel from the cecum to the distal transverse colon - U/A was consistent with UTI - Pending blood culture, urine bacterial culture, urine NAAT for chlamydia, gonorrhea and stool WBC - clear liquid diet - IV NS at 100 mL/hours - IV ceftriaxone 1 g daily and IV metronidazole 500 mg Q 8 hours - IV ondansetron 4 mg Q 8 hours Blood culture reveals Gram-positive bacteria Repeat cultures ordered Severe hypothyroidism likely secondary to noncompliant with medication - TSH is 19.37 - Levothyroxine 100 mcg at q.6 a.m. Vitamin-D deficiency - Ergocalciferol 94411 units Q 7D. Hypertension Likely from substance abuse/ infection Hyperglycemia Follow up blood glucose levels DVT prophylaxis Not recommended Goal of care full code Plan discussed with Dr. Blanco Plan discussed with: Patient My Orders My Orders Orders - SABI ROMERO RESIDENT Procedure Category Date Status Time Blood Culture NATHAN 03/04/25 In Process 13:50 Complete Blood Count LAB 03/05/25 Verified 04:00 Comprehensive LAB 03/05/25 Verified Metabolic Panel 04:00 Date of Service: Mar 04, 2025 Billing Provider: NUVIA BLANCO DO Common Visit Codes: [id number] INP/OBS CARE(HIGH) SABI ROMERO RESIDENT Mar 04, 2025 16:04 NUVIA BLANCO DO Mar 05, 2025 20:30
[2025-03-04] MEDS: VANCOMYCIN 1.25GM/250ML 250 ML IV SCH (17:53)
[2025-03-05] VITALS (9 sets, daily range): BP systolic 122–165; BP diastolic 68–108; PULSE 53–83; RESP 17–20; TEMP 98–99.1; O2SAT 89–100
[2025-03-05 06:06] LABS: Chlamydia Trachomatis, NAA Negative (Negative); Neisseria gonorrhoeae, NAA Negative (Negative)
[2025-03-05 08:58] LABS: Hematocrit 42.9 % (36.0-46.0); Hemoglobin 14.6 g/dL (12.2-16.2); Mean Corpuscular Hemoglobin 32.3 pg (28.0-32.0); Mean Corpuscular Volume 95.3 fL (80.0-100.0); Nucleated Red Blood Cells % 0.0 %
[2025-03-05 09:13] LABS: Alanine Aminotransferase 31 U/L (7-40); Albumin 4.5 g/dL (3.2-4.8); Alkaline Phosphatase 77 U/L (46-116); Anion Gap 11 (5-15); BUN/Creatinine Ratio 8.2 (10.0-20.0); Bilirubin, Total 0.5 mg/dL (0.2-1.0); Blood Urea Nitrogen 5 mg/dL (9-23); Calcium 9.0 mg/dL (8.7-10.4); Carbon Dioxide 26 mmol/L (20-31); Chloride 101 mmol/L (98-107); Glucose 91 mg/dL (74-106); Potassium 3.3 mmol/L (3.5-5.1); Sodium 138 mmol/L (136-145); Total Protein 7.2 g/dL (5.7-8.2)
--- NOTE | 2025-03-05 20:31 | DVHPN2 ---
Reviewed: Care Plan, H&P, Labs, Medications, Previous Orders Changes from previous H/P or p: No Changes General: Per HPI Eyes: No Pain, No Vision change, No Conjunctivae inflammation, No Eyelid inflammation, No Other, No Redness ENT: No Ear pain, No Ear discharge, No Nose pain, No Nose discharge, No Nose congestion, No Mouth pain, No Mouth swelling, No Throat pain, No Throat swelling, No Other Cardiovascular: No Chest Pain, No Palpitations, No Orthopnea, No Paroxysmal Noc. Dyspnea, No Edema, No Lt Headedness, No Other Respiratory: No Cough, No Dry, No Shortness of breath, No SOB with excertion, No Wheezing, No Hemoptysis, No Pleuritic Pain, No Sputum, No Other Gastrointestinal: Nausea, Vomiting, Abdominal Pain, Diarrhea Genitourinary: No Dysuria, No Frequency, No Incontinence, No Hematuria, No Retention, No Other Skin: No Rash, No Lesions, No Jaundice, No Bruising, No Other Objective Vitals Vital Signs Date Time Temp Pulse Resp B/P (MAP) Pulse Ox O2 Delivery O2 Flow Rate FiO2 03/05/25 19:45 17 Room Air* 0 21 03/05/25 17:13 99.1 54 123/68 (86) 99 99.1 Intake/Output Intake and Output 03/05/25 07:00 Intake Total 1330 ml Output Total 200 ml Balance 1130 ml Intake Oral 980 ml IV Total 350 ml Output Emesis 200 ml # Voids 3 General Appearance: Alert, Oriented X3, Cooperative Medications Current Medications Medications Dose Ordered Sig/Olivia Route Start Time Stop Time Status Last Admin Dose Admin Sodium Chloride 1,000 ml @ 100 mls/hr Q10H IV 03/03/25 04:00 03/04/25 05:23 100 MLS/HR Ceftriaxone Sodium 50 ml @ 100 mls/hr DAILY IV 03/04/25 10:00 03/05/25 09:34 100 MLS/HR Metronidazole 100 ml @ 100 mls/hr Q8HR IV 03/03/25 14:00 03/05/25 13:49 100 MLS/HR Levothyroxine Sodium 100 mcg QAM@0600 PO 03/03/25 06:00 03/05/25 06:10 100 MCG Ergocalciferol 50,000 unit Q7D PO 03/03/25 05:00 03/03/25 05:51 50,000 UNIT Ondansetron HCl 4 mg Q4HPRN PRN IV 03/03/25 12:00 03/05/25 13:13 4 MG Acetaminophen 500 mg Q6HP PRN PO 03/04/25 00:45 03/04/25 00:42 500 MG Vancomycin HCl 0 ml @ 0 mls/hr PER PHARMACY IV 03/04/25 05:15 Vancomycin HCl 250 ml @ 200 mls/hr Q12H IV 03/04/25 18:00 03/05/25 17:49 200 MLS/HR Laboratory Results Laboratory Tests 03/05/25 08:27 Chemistry Test 03/05/25 08:27 Albumin 4.5 g/dL (3.2-4.8) Calcium Level 9.0 mg/dL (8.7-10.4) Total Protein 7.2 g/dL (5.7-8.2) LFT Test 03/05/25 08:27 Alanine Aminotransferase (ALT) 31 U/L (7-40) Alkaline Phosphatase 77 U/L (46-116) Aspartate Amino Transferase (AST) 19 U/L (13-40) Total Bilirubin 0.5 mg/dL (0.2-1.0) Urinalysis Test 03/03/25 01:55 Urine Color [place] (Yellow) H Urine Clarity Ex.turbid (Clear) Urine pH 6.5 (5.0-9.0) Urine Specific [place] 1.044 (1.001-1.035) Urine Protein 3+ (Negative) H Urine Ketones 2+ (Negative) H Urine Blood 2+ /uL (Negative) H Urine Nitrite Negative (Negative) Urine Bilirubin 1+ (Negative) H Urine Urobilinogen 4 mg/dL (Negative) H Urine Leukocyte Esterase 3+ /uL (Negative) Urine RBC 13 /hpf (0 - 4) Urine Microscopic WBC 221 /HPF (0-5) H Urine Squamous Epithelial Cells Many /hpf (<5) Urine Bacteria None seen /hpf (None Seen) Urine Mucus Many (None Seen) Urine Glucose Normal mg/dL (Normal) Urine Test Negative (Negative) Microbiology Microbiology Date/Time Source Procedure Growth Status 03/04/25 14:16 Blood Blood Culture - Preliminary NO GROWTH AFTER 24 HOURS OF INCUBATION. Resulted 03/03/25 06:20 Nose MRSA Screen - Final Complete 03/03/25 01:15 Voided Urine Urine Culture - Final Complete Labs and/or images reviewed: Labs reviewed by me, Image(s) reviewed by me Assessment/Plan Assessment/Plan Acute complicated UTI Proximal mid Colitis likely infectious Leukocytosis due to above - CBC demonstrated elevated WBC count with left shift - CT abdomen pelvis without contrast demonstrated acute mild colitis with circumferential wall prominence of the large bowel from the cecum to the distal transverse colon - U/A was consistent with UTI - Pending blood culture, urine bacterial culture, urine NAAT for chlamydia, gonorrhea and stool WBC - clear liquid diet - IV NS at 100 mL/hours - IV ceftriaxone 1 g daily and IV metronidazole 500 mg Q 8 hours - IV ondansetron 4 mg Q 8 hours Blood culture reveals Gram-positive bacteria Repeat cultures ordered advancing diet, pt still has some nausea but improving possible dc within 24 hours Severe hypothyroidism likely secondary to noncompliant with medication - TSH is 19.37 - Levothyroxine 100 mcg at q.6 a.m. Vitamin-D deficiency - Ergocalciferol 77816 units Q 7D. Hypertension Likely from substance abuse/ infection Hyperglycemia Follow up blood glucose levels DVT prophylaxis Not recommended Plan discussed with: Patient My Orders Orders - NUVIA BLANCO DO Procedure Category Date Status Time Soft Diet DIET 03/05/25 Transmitted Dinner Date of Service: Mar 05, 2025 Billing Provider: NUVIA BLANCO DO Common Visit Codes: [id number] INP/OBS CARE(HIGH) NUVIA BLANCO DO Mar 05, 2025 20:31
[2025-03-06 01:00] VITALS: BP 133/88; PULSE 51; RESP 19; TEMP 98.3; O2SAT 99
[2025-03-06 05:00] VITALS: BP 122/76; PULSE 52; RESP 19; TEMP 98; O2SAT 100
[2025-03-06 05:57] LABS: Hematocrit 44.1 % (36.0-46.0); Hemoglobin 15.2 g/dL (12.2-16.2); Mean Corpuscular Hemoglobin 32.6 pg (28.0-32.0); Mean Corpuscular Volume 94.9 fL (80.0-100.0); Nucleated Red Blood Cells % 0.1 %
[2025-03-06 08:00] VITALS: PULSE 59; RESP 18
[2025-03-06 09:21] VITALS: BP 116/83; PULSE 59; RESP 18; TEMP 98.2; O2SAT 18
[2025-03-06 13:00] VITALS: BP 122/81; PULSE 54; RESP 20; TEMP 98.3; O2SAT 99
[2025-03-06] MEDS ORDERED: LEVO750T40 PO (14:43)
[2025-03-06] MEDS ORDERED: METR-344 PO (14:43)
--- NOTE | 2025-03-06 14:46 | DVHDS2 ---
Discharge Summary Date of Admission Mar 03, 2025 at 03:43 Date of Discharge: Mar 06, 2025 Labs/Diagnostic Data: Laboratory Results Test 03/06/25 11:30 03/06/25 05:02 03/05/25 08:27 03/03/25 08:45 White Blood Count 9.6 10^3/uL (4.4-10.8) Red Blood Count 4.65 10^6/uL (4.0-5.20) Hemoglobin 15.2 g/dL (12.2-16.2) Hematocrit 44.1 % (36.0-46.0) Mean Corpuscular Volume 94.9 fL (80.0-100.0) Mean Corpuscular Hemoglobin 32.6 pg (28.0-32.0) Mean Corpuscular Hemoglobin Concent 34.4 g/dL (32.0-36.0) Red Cell Distribution Width 12.6 % (11.8-14.3) Platelet Count 286 10^3/uL (140-450) Mean Platelet Volume 6.9 fL (6.9-10.8) Neutrophils (%) (Auto) 49.7 % (37.0-80.0) Lymphocytes (%) (Auto) 35.2 % (10.0-50.0) Monocytes (%) (Auto) 12.5 % (0.0-12.0) Eosinophils (%) (Auto) 1.8 % (0.0-7.0) Basophils (%) (Auto) 0.8 % (0.0-2.0) Neutrophils # (Auto) 4.8 10 ^3/uL (1.6-8.6) Lymphocytes # (Auto) 3.4 10 ^3/uL (0.4-5.4) Monocytes # (Auto) 1.2 10 ^3/uL (0-1.3) Eosinophils # (Auto) 0.2 10 ^3/uL (0-0.8) Basophils # (Auto) 0.1 10 ^3/uL (0-0.2) Nucleated Red Blood Cells 0.1 % Potassium Level 3.4 mmol/L (3.5-5.1) Creatinine 0.69 mg/dL (0.550-1.02) Glomerular Filtration Rate Calc 123 mL/min (>90) Vancomycin Level Trough 5.0 ug/mL (5-10) Sodium Level 138 mmol/L (136-145) Chloride Level 101 mmol/L (98-107) Carbon Dioxide Level 26 mmol/L (20-31) Anion Gap 11 (5-15) Blood Urea Nitrogen 5 mg/dL (9-23) BUN/Creatinine Ratio 8.2 (10.0-20.0) Serum Glucose 91 mg/dL (74-106) Calcium Level 9.0 mg/dL (8.7-10.4) Total Bilirubin 0.5 mg/dL (0.2-1.0) Aspartate Amino Transferase (AST) 19 U/L (13-40) Alanine Aminotransferase (ALT) 31 U/L (7-40) Alkaline Phosphatase 77 U/L (46-116) Total Protein 7.2 g/dL (5.7-8.2) Albumin 4.5 g/dL (3.2-4.8) Chlamydia trachomatis (CHIKIS) Negative (Negative) Neisseria gonorrhoeae (CHIKIS) Negative (Negative) Test 03/03/25 04:00 03/03/25 03:10 03/03/25 01:55 03/03/25 01:42 Influenza Type A Antigen Negative (Negative) Influenza Type B Antigen Negative (Negative) SARS-CoV-2 Antigen (Rapid) Negative (NEGATIVE) Lactic Acid Level 1.4 mmol/L (0.4-2.0) Urine Color [place] (Yellow) Urine Clarity Ex.turbid (Clear) Urine pH 6.5 (5.0-9.0) Urine Specific [place] 1.044 (1.001-1.035) Urine Protein 3+ (Negative) Urine Ketones 2+ (Negative) Urine Blood 2+ /uL (Negative) Urine Nitrite Negative (Negative) Urine Bilirubin 1+ (Negative) Urine Urobilinogen 4 mg/dL (Negative) Urine Leukocyte Esterase 3+ /uL (Negative) Urine RBC 13 /hpf (0 - 4) Urine Microscopic WBC 221 /HPF (0-5) Urine Squamous Epithelial Cells Many /hpf (<5) Urine Bacteria None seen /hpf (None Seen) Urine Mucus Many (None Seen) Urine Glucose Normal mg/dL (Normal) Urine Test Negative (Negative) Urine Opiates Screen Neg (NEGATIVE) Urine Fentanyl Screen Neg (NEGATIVE) Urine Barbiturates Screen Neg (NEGATIVE) Urine Phencyclidine Screen Neg (NEGATIVE) Urine Amphetamines Screen Neg (NEGATIVE) Urine Benzodiazepines Screen Neg (NEGATIVE) Urine Cocaine Screen Neg (NEGATIVE) Urine Cannabinoids Screen Pos (NEGATIVE) POC Glucose 159 mg/dl (70-106) Test 03/03/25 01:16 Hemoglobin A1c 5.1 % A1C (<5.7) Lipase 30 U/L (12-53) Vitamin B12 Level 381 pg/mL (211-911) Vitamin D 25-Hydroxy 14.8 ng/mL (30.0-100) Thyroid Stimulating Hormone (TSH) 19.37 uIU/mL (0.55-4.78) Other Laboratory Tests 03/06/25 05:02 03/05/25 08:27 Brief Hx & Hospital Course: 24 F with abdominal pain found to have colitis, also have urine sample with wbc. treated with ceft flagyl. bcx 1 bottle with GPC, 2nd bottle and next culture neg, likely contaminant. symptoms improved, received iv fluid, tolerating oral. stable to me home. [facility] clinic thursday. Condition at Discharge: Good Final Diagnosis/Problems List colitis acute cystitis bcx contaminant Discharge Disposition: Home Discharge Instruct/Medications Diet: Regular Activity: No Restrictions, As Tolerated Follow Up/Referral: me clinic 03/10 dr sinha Medications: levo flagyl Scheduled Levofloxacin Hemihydrate (Levofloxacin), 1 TAB PO DAILY Metronidazole (Flagyl), 1 TAB PO TID Discharge Statement: "Patient was advised to return to the ER or call 911 if any headaches, dizziness, shortness of breath, chest pain, abdominal pain, bleeding, fevers, or worsening of medical condition. Patient was counseled about treatment plan, medications, possible side effects, patientverbalized understanding. All questions were answered to the best of my ability. This discharge took greater then 30 minutes in planning, reviewing documentation, counseling the patient, and discussing with other team members." ASSESSMENT ASSESSMENT Assessment colitis bcx contaminant Date of Service: Mar 06, 2025 Billing Provider: STACY RAMAN MD Common Visit Codes: [id number] DISCH DAY >30min STACY RAMAN MD Mar 06, 2025 14:46
[2025-03-06] MEDS ORDERED: LEVO50TA7 PO (14:53)
[2025-03-06 17:00] VITALS: BP 120/74; PULSE 59; RESP 20; TEMP 98.4; O2SAT 99
== END 2025-03-06 19:00 | disposition home or self-care (01) | DRG 249 ==
LOC: ER 00:44 → OVERFLOW 03:43 → WEST WING 16:33
PROVIDERS: ADMIT Student in an Organized Health Care Education/Training Program; ATTEND Student in an Organized Health Care Education/Training Program
DX: A09 Infectious gastroenteritis and colitis, unspecified (principal); E03.9 Hypothyroidism, unspecified; N30.00 Acute cystitis without hematuria; I10 Essential (primary) hypertension; E55.9 Vitamin D deficiency, unspecified; R73.9 Hyperglycemia, unspecified; E86.0 Dehydration; Z91.148 Patient's other noncompliance with medication regimen for other reason
CPT/HCPCS: 36415; 74177; 76775; 80053; 80202; 80307; 81001; 81025; 82306; 82565; 82607; 82962; 83036; 83605; 83690; 84132; 84443; 85025; 85048; 87040; 87077; 87081; 87086; 87186; 87426; 87804; G0378; J2405; J2470; J3490